=== PATIENT | male | born 1985 | race Caucasian/White ===

== ENCOUNTER 2022-07-27 20:00 | Emergency (ER) | payer BC, SELFPAY ==
[2022-07-27 20:02] VITALS: BP 143/95; PULSE 86; RESP 19; TEMP 36.6; O2SAT 98; BMI 29.5
--- NOTE | 2022-07-27 20:18 | XR_ITS ---
PROCEDURE INFORMATION: Exam: XR Chest Exam date and time: 07/27/2022 8:11 PM Age: 37 years old Clinical indication: Cough and fever; Prior surgery; Additional info: Cough, fever TECHNIQUE: Imaging protocol: Radiologic exam of the chest. Views: 2 views. COMPARISON: No relevant prior studies available. FINDINGS: Lungs: Normal pulmonary expansion. Pulmonary vasculature grossly normal. No gross pulmonary infiltrates or edema pattern. Pleural spaces: No pleural effusion. No pneumothorax. Heart/Mediastinum: Heart size normal. No tracheal/mediastinal shift. Bones/joints: Lower thoracic/upper lumbar spinal fusion hardware without gross complication. No acute osseous abnormalities are identified. IMPRESSION: No acute thoracic process.
--- NOTE | 2022-07-27 20:22 | HMH.EDURI ---
Discharge Plan Disposition Patient Disposition: Home, Self-Care Prescriptions Prescriptions: New azithromycin [azithromycin] 250 mg tablet 250 mg PO DIRECTED Qty: 6 0RF Rx Instructions: Take two (2) tablets on day #1, then one (1) tablet day #2 thru #5 benzonatate 100 mg Capsule 100 mg PO Q8H Qty: 14 0RF prednisone [prednisone] 20 mg tablet 20 mg PO BID Qty: 10 0RF No Action ibuprofen 800 mg Tablet 800 mg PO Q8H PRN (Reason: Pain) Clinical Impressions Clinical Impression: Bronchitis Instructions Patient Instructions: DI for Acute Bronchitis Discharge ED Provider: Win Swain URI/Sore Throat HPI General Chief Complaint: Upper Respiratory Infection Stated Complaint: cough weakness Time Seen by Provider: 07/27/22 20:22 Mode of Arrival: Family Vehicle Source of Information: Patient and Medical Record Limitations: No Limitations Description of Symptoms (Recalled from ER Triage Doc. by RN): Pt c/o sore throat, dry cough, n/v/d, and chills. He has been taking Ibuprofen. Denies any chest pain or SOA. History of Present Illness HPI Narrative: cough and sore throat and achey over the last 2 days MD Complaint: cough Onset (ago): day(s) Duration: intermittent Severity: moderate Able to tolerate fluids by mouth: Yes Associated symptoms: denies other symptoms Treatments prior to arrival: ibuprofen Related Data Home Medications Medication Instructions Recorded Confirmed ibuprofen 800 mg tablet 800 mg PO Q8H PRN Pain 07/27/22 07/27/22 Previous Rx's Medication Instructions Recorded azithromycin 250 mg tablet 250 mg PO DIRECTED #6 tabs 07/27/22 benzonatate 100 mg capsule 100 mg PO Q8H #14 caps 07/27/22 prednisone 20 mg tablet 20 mg PO BID #10 tabs 07/27/22 Allergies Allergy/AdvReac Type Severity Reaction Status Date / Time Sulfa (Sulfonamide Allergy Verified 07/27/22 20:15 Antibiotics) PFS PFS Social History Smoking Status: Never smoker alcohol intake: never current occupational status: employed Travel in the last 8 weeks: None ROS Obtained: Yes All systems reviewed & no additional complaints except as documented Physical Exam General General appearance: alert Head Head exam: normocephalic Eye Eye exam: Present PERRL and EOMI ENT ENT exam: Present mucous membranes moist Neck Neck exam: Present trachea midline Respiratory Respiratory exam: Absent respiratory distress Cardiovascular Cardiovascular exam: Present regular rate Abdominal Exam Abdominal exam: Present soft Extremities Exam Extremities exam: Present full ROM Neurological Exam Neurological exam: Present alert, oriented X3 and CN II-XII intact Skin Skin exam: Absent rash Medical Decision Making Medical Records Medical records reviewed: Yes I reviewed the patient's medical records. Baltazar Inquiry Pt receiving controlled substance: No Vital Signs: 07/27/22 20:02 07/27/22 20:30 Temperature 97.9 F Temperature Source Oral Pulse Rate 71 Pulse Rate [Right] 86 Respiratory Rate 19 Blood Pressure 118/87 Blood Pressure [Right Arm] 143/95 H Blood Pressure Mean [Right Arm] 111 Blood Pressure Source [Right Arm] Automatic Cuff 02 Sat by Pulse Oximetry 98 94 L Oxygen Delivery Method Room Air Room Air Lab Data Lab results reviewed: Yes I reviewed the patient's lab results. Lab Results 07/27/22 20:06: SARS-CoV-2 (PCR) Not detected, Influenza A Untype (PCR) Not detected, Influenza Type B (PCR) Not detected 07/27/22 20:25: WBC 7.8, RBC 5.31, Hgb 14.7, Hct 44.3, MCV 83.4, MCH 27.7, MCHC 33.2, RDW 14.0, Plt Count 319, MPV 8.1, Neut % (Auto) 74.8, Lymph % (Auto) 17.7, [place] % (Auto) 5.6, Eos % (Auto) 1.0, Baso % (Auto) 1.0, Neut # (Auto) 5.8, Lymph # (Auto) 1.4, [place] # (Auto) 0.4, Eos # (Auto) 0.1, Baso # (Auto) 0.1 07/27/22 20:25: Sodium 137, Potassium 3.8, Chloride 97 L, Carbon Dioxide 28, Anion Gap 15.8 H, BUN 16, Creatinine 0.90, Estimated Creat Clear 141, Estim
[2022-07-27 20:26] LABS: Coronavirus 19, PCR Not Detected (NotDetected); Influenza A, PCR Not Detected (NotDetected); Influenza B, PCR Not Detected (NotDetected)
[2022-07-27 20:30] VITALS: BP 118/87; PULSE 71; O2SAT 94
--- NOTE | 2022-07-27 20:38 | PC.NURSE ---
Pt updated on POC
[2022-07-27 20:46] LABS: Strep Scrn Group A (Rapid) Negative (Negative)
[2022-07-27 20:48] LABS: Basophils # 0.1 K/mm3 (0-0.2); Eosinophils # 0.1 K/mm3 (0.0-0.4); Hematocrit 44.3 % (42.0-52.0); Hemoglobin 14.7 g/dL (14.1-18.0); Lymphocytes # 1.4 K/mm3 (0.7-4.5); Lymphocytes % 17.7 % (10-50); Mean Corpuscular HGB Conc 33.2 g/dL (31.8-35.4); Mean Corpuscular Hemoglobin 27.7 pg (27.0-31.2); Mean Corpuscular Volume 83.4 fl (80-94); Mean Platelet Volume 8.1 fl (7.4-10.4); Monocytes # 0.4 K/mm3 (0.1-1.0); Monocytes % 5.6 % (1.7-9.3); Neutrophils # 5.8 K/mm3 (1.8-7.8); Neutrophils % 74.8 % (37.0-80.0); Platelet Count 319 K/mm3 (142-424); Red Blood Count 5.31 M/mm3 (4.60-6.20); White Blood Count 7.8 K/mm3 (4.8-10.8)
[2022-07-27 20:50] LABS: Chloride 97 mmol/L (98-107)
[2022-07-27 20:51] LABS: Potassium 3.8 mmoL/L (3.5-5.1); Sodium 137 mmol/L (136-145)
[2022-07-27 20:53] LABS: Alanine Aminotransferase 46 U/L (12-78); Alkaline Phosphatase 98 U/L (38-126); Aspartate Amino Transferase 45 U/L (17-59); Bilirubin,Total 0.4 mg/dl (0.2-1.3); Blood Urea Nitrogen 16 mg/dl (9-20); Creatinine Clearance Estimated 141 mL/min (50-200); Estimated Glomerular Filt Rate 94 ml/min (>60); GFR (African American) 114 ML/MIN (>60)
[2022-07-27 20:54] LABS: Albumin Level 4.5 g/dl (3.5-5.0); Albumin/Globulin Ratio 1.6 (1.1-1.8); Anion Gap 15.8 mEq/L (5-15); Calcium 9.3 mg/dl (8.4-10.2); Carbon Dioxide 28 mmol/L (22.0-30.0); Globulin 2.8 g/dL (1.3-3.2); Glucose 113 mg/dl (74-100); Total Protein,Serum 7.3 g/dl (6.3-8.2)
--- NOTE | 2022-07-27 21:26 | PC.NURSE ---
Dr. Swain at
[2022-07-27 21:33] VITALS: BP 118/72; PULSE 70; RESP 18; TEMP 36.6; O2SAT 95
== END 2022-07-27 21:35 | disposition home or self-care (01) ==
PROVIDERS: Emergency Provider Emergency Medicine
DX: J40 Bronchitis, not specified as acute or chronic (principal); Z88.2 Allergy status to sulfonamides
CPT/HCPCS: 71046; 80053; 85025; 87430; 96365; 96375; 99284; C9803; J2405; U0003; U0005

== ENCOUNTER 2022-08-05 23:04 | Emergency (ER) | payer BC, SELFPAY ==
[2022-08-05 23:06] VITALS: BP 134/86; PULSE 68; RESP 18; TEMP 36.6; O2SAT 98; BMI 26.6
[2022-08-05 23:13] VITALS: BMI 26.6
--- NOTE | 2022-08-05 23:13 | XR_ITS ---
PROCEDURE INFORMATION: Exam: XR Chest Exam date and time: 08/05/2022 11:07 PM Age: 37 years old Clinical indication: Cough; Additional info: Congestion TECHNIQUE: Imaging protocol: Radiologic exam of the chest. Views: 2 views. COMPARISON: CR XR CHEST 2V 07/27/2022 8:11 PM FINDINGS: Lungs: Low lung volumes. Pulmonary vasculature grossly normal. Mild bandlike alveolar density in the posterior left base favoring atelectasis or chronic scarring. This is unchanged. Pleural spaces: No pleural effusion. No pneumothorax. Heart/Mediastinum: Heart size normal. No tracheal/mediastinal shift. Bones/joints: No acute osseous abnormalities are identified. Thoracolumbar spinal fusion hardware without gross hardware complication or change. Old healed lower left lateral rib fractures. IMPRESSION: 1. No acute thoracic process. No significant change from 07/27/2022. 2. Posterior left basilar atelectasis or scarring.
--- NOTE | 2022-08-05 23:15 | PC.NURSE ---
Pt gone to RAD for CXR
[2022-08-05 23:16] LABS: Coronavirus 19, PCR Not Detected (NotDetected); Influenza B, PCR Not Detected (NotDetected)
--- NOTE | 2022-08-05 23:17 | PC.NURSE ---
PT back from RAD
[2022-08-05 23:30] VITALS: BP 129/93; PULSE 130; O2SAT 96
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
[2022-08-05 23:37] LABS: Basophils % 0.3 % (0.1-2.0); Eosinophils # 0.1 K/mm3 (0.0-0.4); Eosinophils % 1.1 % (0.1-12.0); Hematocrit 47.9 % (42.0-52.0); Lymphocytes # 0.4 K/mm3 (0.7-4.5); Lymphocytes % 2.7 % (10-50); Mean Corpuscular HGB Conc 31.4 g/dL (31.8-35.4); Mean Corpuscular Hemoglobin 27.3 pg (27.0-31.2); Mean Corpuscular Volume 86.9 fl (80-94); Mean Platelet Volume 7.5 fl (7.4-10.4); Monocytes # 0.8 K/mm3 (0.1-1.0); Monocytes % 5.8 % (1.7-9.3); Neutrophils # 12.2 K/mm3 (1.8-7.8); Neutrophils % 90.2 % (37.0-80.0); Platelet Count 311 K/mm3 (142-424); Red Blood Count 5.51 M/mm3 (4.60-6.20); Red Cell Distribution Width 13.3 % (11.5-17.5); White Blood Count 13.5 K/mm3 (4.8-10.8)
[2022-08-05 23:46] LABS: MANUAL DIFFERENTIAL MANUAL DIFFERENTIAL (MANUAL DIFF)
[2022-08-05 23:50] LABS: Alanine Aminotransferase 47 U/L (12-78); Albumin Level 4.8 g/dl (3.5-5.0); Albumin/Globulin Ratio 1.5 (1.1-1.8); Alkaline Phosphatase 111 U/L (38-126); Anion Gap 22.7 mEq/L (5-15); Aspartate Amino Transferase 35 U/L (17-59); Bilirubin,Total 0.4 mg/dl (0.2-1.3); Blood Urea Nitrogen 16 mg/dl (9-20); Calcium 9.6 mg/dl (8.4-10.2); Carbon Dioxide 24 mmol/L (22.0-30.0); Chloride 93 mmol/L (98-107); Creatinine Clearance Estimated 115 mL/min (50-200); Estimated Glomerular Filt Rate 83 ml/min (>60); GFR (African American) 101 ML/MIN (>60); Globulin 3.1 g/dL (1.3-3.2); Glucose 136 mg/dl (74-100); Potassium 3.7 mmoL/L (3.5-5.1); Sodium 136 mmol/L (136-145); Total Protein,Serum 7.9 g/dl (6.3-8.2)
[2022-08-05 23:55] LABS: C-Reactive Protein 17.3 mg/L (0-4)
[2022-08-06] VITALS: BP 140/76; PULSE 111; O2SAT 95
[2022-08-06 00:01] LABS: Influenza A, PCR Detected (NotDetected)
[2022-08-06 00:07] LABS: Lymphocytes % 6 % (10-50); Monocytes % 4 % (2-9); Neutrophils % 85 % (42-76); Platelet Estimate Normal; RBC Morphology Normal; Total Cells Counted 100
[2022-08-06 00:09] LABS: Procalcitonin 0.117 ng/mL (0.0-2.0)
[2022-08-06 00:11] LABS: Erythrocyte Sedimentation Rate 14 mm/hr (0-15)
[2022-08-06 00:36] VITALS: BP 127/79; PULSE 111; RESP 22; TEMP 37.1; O2SAT 96
== END 2022-08-06 00:47 | disposition home or self-care (01) ==
PROVIDERS: Emergency Provider Emergency Medicine
DX: J10.1 Influenza due to other identified influenza virus with other respiratory manifestations (principal)
CPT/HCPCS: 71046; 80053; 84145; 85007; 85025; 85651; 86140; 94640; 96374; 99284; C9803; U0003; U0005

== ENCOUNTER 2023-04-19 17:18 | Emergency (ER) | payer SELFPAY ==
[2023-04-19] VITALS (9 sets, daily range): BP systolic 116–135; BP diastolic 80–101; PULSE 65–93; RESP 16–20; TEMP 36.6–36.7; O2SAT 94–98; BMI 28.0
--- NOTE | 2023-04-19 18:12 | CT_ITS ---
PROCEDURE INFORMATION: Exam: CT Cervical Spine Without Contrast Exam date and time: 04/19/2023 6:23 PM Age: 38 years old Clinical indication: Injury or trauma; Fall; Blunt trauma; Additional info: Fall, midline pain TECHNIQUE: Imaging protocol: Computed tomography of the cervical spine without contrast. Radiation optimization: All CT scans at this facility use at least one of these dose optimization techniques: automated exposure control; mA and/or kV adjustment per patient size (includes targeted exams where dose is matched to clinical indication); or iterative reconstruction. REPORTING DATA: Count of CT and Cardiac NM exams in prior 12 months: This patient has received 0 known CTs and 0 known cardiac nuclear medicine studies in the 12 months prior to the current study. COMPARISON: CR XR CHEST 2V 08/05/2022 11:07 PM FINDINGS: Bones/joints: No acute fracture. Near anatomic alignment. No severe spinal canal stenosis. Lungs: Lung apices are normal. Soft tissues: Unremarkable. IMPRESSION: No acute osseous injury.
--- NOTE | 2023-04-19 18:12 | CT_ITS ---
PROCEDURE INFORMATION: Exam: CT Lumbar Spine Without Contrast Exam date and time: 04/19/2023 6:29 PM Age: 38 years old Clinical indication: Injury or trauma; Fall; Blunt trauma (contusions or hematomas); Prior surgery; Surgery date: 6+ months; Surgery type: Back surgery 1 year ago; Additional info: Fall, midline pain, previous hardware TECHNIQUE: Imaging protocol: Computed tomography of the lumbar spine without contrast. Radiation optimization: All CT scans at this facility use at least one of these dose optimization techniques: automated exposure control; mA and/or kV adjustment per patient size (includes targeted exams where dose is matched to clinical indication); or iterative reconstruction. REPORTING DATA: Count of CT and Cardiac NM exams in prior 12 months: This patient has received 0 known CTs and 0 known cardiac nuclear medicine studies in the 12 months prior to the current study. COMPARISON: CT THORACIC SPINE WO CON 04/19/2023 6:26 PM FINDINGS: Bones/joints: There is transitional anatomy present with lumbarization of S1. The alignment is near anatomic. There are spinal fusion changes extending inferiorly to the L2 level extending from the thoracic spine superiorly. There is a mild superior endplate compression deformity of the T12 vertebrae with mild retropulsion incompletely visualized. Old fracture of the right L3 spinous process. Kidneys and ureters: Nonobstructing left lower pole renal stone measuring 4 mm. Soft tissues: Unremarkable. IMPRESSION: Partially visualized compression deformity of T12 with mild retropulsion is age indeterminate. Correlate with point tenderness. No acute appearing lumbar spinal fracture. Spinal fusion changes extend inferiorly to the L2 level.
--- NOTE | 2023-04-19 18:12 | CT_ITS ---
PROCEDURE INFORMATION: Exam: CT Thoracic Spine Without Contrast Exam date and time: 04/19/2023 6:26 PM Age: 38 years old Clinical indication: Injury or trauma; Fall; Blunt trauma (contusions or hematomas); Prior surgery; Surgery date: 6+ months; Surgery type: Back surgery 1 year ago; Additional info: Fall, midline pain TECHNIQUE: Imaging protocol: Computed tomography of the thoracic spine without contrast. Radiation optimization: All CT scans at this facility use at least one of these dose optimization techniques: automated exposure control; mA and/or kV adjustment per patient size (includes targeted exams where dose is matched to clinical indication); or iterative reconstruction. REPORTING DATA: Count of CT and Cardiac NM exams in prior 12 months: This patient has received 0 known CTs and 0 known cardiac nuclear medicine studies in the 12 months prior to the current study. COMPARISON: 1. CT CERVICAL SPINE WO CON 04/19/2023 6:[address] LUMBAR SPINE WO CON 04/19/2023 6:29 PM FINDINGS: Bones/joints: Spinal fusion changes extend from the T10 level superiorly again inferiorly to the L2 level. There is a superior endplate compression fracture of T12 with mild loss of height present and mild posterior bony retropulsion mildly narrowing the spinal canal. There is also minimal superior endplate height loss in the T11 vertebrae. The visualized hardware is intact. The alignment of the thoracic spine is near anatomic. Old right-sided posterior rib fractures. Soft tissues: Unremarkable. Lymph nodes: Calcified hilar nodes. Lungs: Bilateral lung calcified granulomas. IMPRESSION: Spinal fusion changes T10-L2 again visualized. There is mild superior endplate compression deformity of T12 with bony retropulsion causing mild stenosis of the spinal canal. There is also a minimal superior endplate compression deformity of T11 without retropulsion. These are age indeterminate. Correlate with point tenderness.
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
--- NOTE | 2023-04-19 18:18 | PC.NURSE ---
PT TO XR
[2023-04-19 19:15] LABS: Basophils % 0.4 % (0.1-2.0); Eosinophils # 0.1 K/mm3 (0.0-0.4); Eosinophils % 1.4 % (0.1-12.0); Hematocrit 43.1 % (42.0-52.0); Hemoglobin 13.9 g/dL (14.1-18.0); Lymphocytes # 1.3 K/mm3 (0.7-4.5); Lymphocytes % 20.4 % (10-50); Mean Corpuscular HGB Conc 32.1 g/dL (31.8-35.4); Mean Corpuscular Hemoglobin 26.6 pg (27.0-31.2); Mean Corpuscular Volume 82.8 fl (80-94); Mean Platelet Volume 7.9 fl (7.4-10.4); Monocytes # 0.5 K/mm3 (0.1-1.0); Monocytes % 7.8 % (1.7-9.3); Neutrophils # 4.4 K/mm3 (1.8-7.8); Neutrophils % 69.9 % (37.0-80.0); Platelet Count 290 K/mm3 (142-424); Red Blood Count 5.21 M/mm3 (4.60-6.20); Red Cell Distribution Width 14.4 % (11.5-17.5); White Blood Count 6.2 K/mm3 (4.8-10.8)
[2023-04-19 19:16] LABS: Chloride 101 mmol/L (98-107); Sodium 137 mmol/L (136-145)
[2023-04-19 19:19] LABS: Blood Urea Nitrogen 23 mg/dl (9-20); Calcium 8.9 mg/dl (8.4-10.2); Carbon Dioxide 25 mmol/L (22.0-30.0); Creatinine Clearance Estimated 133 mL/min (50-200); Estimated Glomerular Filt Rate 93 ml/min (>60); GFR (African American) 113 ML/MIN (>60); Glucose 103 mg/dl (74-100)
--- NOTE | 2023-04-19 19:51 | PC.NURSE ---
contracted [facility] for possible transfer
--- NOTE | 2023-04-19 19:55 | PC.NURSE ---
ED doctor on phone with Dr. Romero @ [facility]
--- NOTE | 2023-04-19 19:57 | PC.NURSE ---
[facility] declined pt and recommend [facility] where pt had surgery done
--- NOTE | 2023-04-19 20:03 | PC.NURSE ---
Spoke with [facility] advised they would page the spine team and call back
--- NOTE | 2023-04-19 20:36 | PC.NURSE ---
Dr. Guerrero speaking with MD at [facility] team
--- NOTE | 2023-04-19 21:28 | PC.NURSE ---
Franklin Mistry RN on phone with [facility] re: no return call from spinal surgeon
--- NOTE | 2023-04-19 21:38 | PC.NURSE ---
spoke with [facility]. she states they were awaiting images, informed that we dont have accessible to share images and they will pages surgeon
== END 2023-04-19 22:23 | disposition home or self-care (01) ==
PROVIDERS: Emergency Provider Emergency Medicine
DX: S22.080A Wedge compression fracture of T11-T12 vertebra, initial encounter for closed fracture (principal); W18.2XXA Fall in (into) shower or empty bathtub, initial encounter
CPT/HCPCS: 72125; 72128; 72131; 80048; 85025; 96374; 99285